=== PATIENT | female | born 1945 | race Caucasian/White ===

== ENCOUNTER 2018-09-08 03:46 | Emergency (ER) | payer MEDICARE ==
[~2018-09-08] VITALS: Ht 170.2 cm; Wt 76.5 kg
[2018-09-08] MEDS ORDERED: HYDR50CA PO (04:45)
[2018-09-08] MEDS ORDERED: DIPH25CA61 PO (04:45)
[2018-09-08] MEDS ORDERED: VALS1TAB3 PO (04:45)
[2018-09-08] MEDS ORDERED: PREMARIN (04:45)
[2018-09-08] MEDS ORDERED: CLOP75TA52 PO (04:53)
[2018-09-08] MEDS ORDERED: ATOR40TA78 PO (04:53)
[2018-09-08] MEDS ORDERED: VALS80TA3 PO (04:53)
[2018-09-08] MEDS ORDERED: HYDR25TA6 PO (04:53)
--- NOTE | 2018-09-08 05:44 | NUR ---
PT ABLE TO PROVIDE URINE SAMPLE. URINE WALKED TO LAB
[2018-09-08 06:02] LABS: CULTURE INDICATED? YES; MICROSCOPIC INDICATED
[2018-09-08 06:39] VITALS: BP 130/72
== END 2018-09-08 07:32 | disposition home or self-care (01) ==
LOC: ED 07:13
DX: S29.012A Strain of muscle and tendon of back wall of thorax, initial encounter (principal); Z90.710 Acquired absence of both cervix and uterus; Z72.9 Problem related to lifestyle, unspecified; X58.XXXA Exposure to other specified factors, initial encounter; Y93.89 Activity, other specified; Y92.89 Other specified places as the place of occurrence of the external cause; Y99.8 Other external cause status
CPT/HCPCS: 81001; 82962; 87086; 99283

== ENCOUNTER 2018-09-08 19:54 | Emergency (ER) | payer MEDICARE ==
[~2018-09-08] VITALS: Ht 170.2 cm; Wt 76.1 kg
[~2018-09-08 19:54] MED LIST: ATOR40TA78 PO; CLOP75TA52 PO; DIPH25CA61 PO; HYDR25TA6 PO; HYDR50CA PO; PREMARIN; VALS1TAB3 PO; VALS80TA3 PO
[2018-09-08 19:55] VITALS: BP 151/79
--- NOTE | 2018-09-08 21:05 | NUR ---
Patient/Caregiver given discharge instructions and they have confirmed that they understand the instructions. Patient ambulatory with steady gait.
--- NOTE | 2018-09-08 21:23 | NUR ---
PT HAS BEEN GIVEN A TAXI VOUCHER BACK TO THE [facility] WHERE SHE WAS PRIOR TO BEING PICKED UP. PT DOES NTO WANT TO Addendum: 09/08/18 at 2123 by ESTHELA PT HAS BEEN GIVEN A TAXI VOUCHER BACK TO THE [facility] WHERE SHE WAS PRIOR TO BEING PICKED UP. PT DOES NOT WANT TO GO TO THE [facility]. WOULD LIKE FOR US TO ARRANGE "SOMETHING BETTER OR LIVEABLE FOR HER" PT INSTRUCTED THAT WE DO NOT HAVE SW AT THIS TIME AND WE HAVE OFFERED TRANSPORT TO [place] [facility] [place]. PT CONINUTES TO REFUSE. PT PROVIDED WITH A TAXI VOUCHER TO THE [facility] THAT WAS HER DESIRED LOCAITON. Patient/Caregiver given discharge instructions and they have confirmed that they understand the instructions. Patient ambulatory with steady gait.
== END 2018-09-08 21:40 | disposition home or self-care (01) ==
LOC: ED 21:06
DX: R07.89 Other chest pain (principal); I10 Essential (primary) hypertension; W01.0XXA Fall on same level from slipping, tripping and stumbling without subsequent striking against object, initial encounter; Y93.89 Activity, other specified; Y92.488 Other paved roadways as the place of occurrence of the external cause; Y99.8 Other external cause status
CPT/HCPCS: 99283